=== PATIENT | female | born 1965 | race Caucasian/White ===

== ENCOUNTER 2020-05-24 12:05 | Outpatient (CLI) | payer BC ==
--- NOTE | 2020-05-24 17:46 | CT Report ---
PROCEDURE: Sinuses INDICATIONS: CHRONIC SINUSITIS TECHNIQUE: Noncontrast 3.0 mm axial images acquired from the frontal sinuses to the mid-sella, with coronal and sagittal reformats. For radiation dose reduction, the following was used: automated exposure control , adjustment of mA and/or kV according to patient size. COMPARISON: None. FINDINGS: Image quality: Excellent. Maxillary Sinuses: No bony remodeling or destruction. Sinuses are clear. Ethmoid Air Cells: No bony remodeling or destruction. Sinuses are clear. Sphenoid Sinuses: No bony remodeling or destruction. Sinuses are clear. Frontal Sinuses: No bony remodeling or destruction. Sinuses are clear. Ostiomeatal Complexes: Ostiomeatal complexes are patent. No Misael cells. Miscellaneous: Visualized intra-orbital contents are normal. No linnette bullosa. No nasal septal de viation. IMPRESSION: Unremarkable CT of the sinuses without significant paranasal sinus disease. Reviewed by: Ry Son DO on 05/24/2020 4:44 PM [facility] Approved by: Ry Son DO on 05/24/2020 4:44 PM [facility] Station ID: [id number]
== END 2020-05-24 12:06 | disposition home or self-care (01) ==
LOC: DI 12:05
PROVIDERS: ATTEND Internal Medicine
DX: J32.9 Chronic sinusitis, unspecified (principal)

== ENCOUNTER 2021-08-31 07:06 | Outpatient (CLI) | payer BC | END 2021-08-31 07:07 | disposition short-term general hospital (02) | LOC: EMS 07:06 | DX: M25.552 Pain in left hip (principal); W01.0XXA Fall on same level from slipping, tripping and stumbling without subsequent striking against object, initial encounter; Y93.E1 Activity, personal bathing and showering; Y92.002 Bathroom of unspecified non-institutional (private) residence as the place of occurrence of the external cause | CPT/HCPCS: A0425; A0427 ==